=== PATIENT | male | born 1985 | race Caucasian/White ===

== ENCOUNTER 2016-08-14 20:30 | Emergency (ER) | payer OTHER | END 2016-08-15 05:37 | disposition home or self-care (01) | LOC: ER1 20:30 | DX: M79.605 Pain in left leg (principal); G89.29 Other chronic pain; I10 Essential (primary) hypertension; Z79.891 Long term (current) use of opiate analgesic; Z79.899 Other long term (current) drug therapy | CPT/HCPCS: 36415; 85379; 99283 ==